=== PATIENT | male | born 1995 | race American Indian/Alaskan Native ===

== ENCOUNTER 2019-05-11 01:41 | Emergency (ER) | payer SELFPAY ==
[~2019-05-11] VITALS: Ht 190.5 cm; Wt 104.3 kg
[~2019-05-11 01:41] MED LIST: CEPHALEXIN500 MG PO
== END 2019-05-11 05:44 | disposition home or self-care (01) ==
LOC: ED 01:41
DX: F10.129 Alcohol abuse with intoxication, unspecified (principal)
CPT/HCPCS: 96360; 99284-25; J7030